=== PATIENT | male | born 1990 | race Two or more races ===

== ENCOUNTER 2024-10-30 23:25 | Inpatient (IN) | payer MEDICAID, OTHER ==
[~2024-10-30] VITALS: Ht 170.2 cm; Wt 60.1 kg
[2024-10-30] MEDS: IPRATROPIUM BROM 0.5 MG/2.5ML INH SOL NEB ONE (23:56)
[2024-10-30] MEDS: ALBUTEROL SULF 2.5 MG/0.5ML(0.5%) NEB SOLN NEB ONE (23:56)
[2024-10-31] VITALS (8 sets, daily range): BP systolic 116–119; BP diastolic 61–71; PULSE 79–103; RESP 16–18; TEMP 97.8–98.2; O2SAT 92–98
--- NOTE | 2024-10-31 00:02 | DVH ---
CHEST RADIOGRAPH Indication: sob Technique: Single frontal view of the chest was obtained Comparison: None Findings/ IMPRESSION: Bilateral diffuse patchy opacities concerning for multifocal pneumonia with other etiologies not excl uded.
--- NOTE | 2024-10-31 00:26 | ED.PDOC ---
SOB-HPI HPI Comments 34-year-old male complaining of shortness a breath. Patient states he has been having shortness of breath since September. He was diagnosed with pneumonia in January and then again in September. He was hospitalized in [place]. States he was state for three weeks and was discharged. Since then he was felt no significant improvement. He was only sent home with an inhaler. States that he was told he may need a biopsy he was lungs but has not had it done yet. Nothing makes him better, walking makes his shortness a breath worse. States he has been having some significant coughing. Chief Complaint: Shortness of Breath Time Seen by MD: 23:31 Reviewed notes: Nurses Notes Information Source: Patient Mode of Arrival: Ambulatory Severity: Moderate Past Medical History PAST MEDICAL HISTORY: Denies Surgical History: Denies all surgeries Constitutional: denies: chills, diaphoresis, fatigue, fever, malaise, sweats, weakness, others EENTM: denies: blurred vision, double vision, ear bleeding, ear discharge, ear drainage, ear pain, ear ringing, eye pain, eye redness, hearing loss, mouth pain, mouth swelling, nasal discharge, nose bleeding, nose congestion, nose pain, photophobia, tearing, throat pain, throat swelling, voice changes, others Respiratory: reports: cough, SOB at rest, SOB with excertion; denies: hemoptysis, orthopnea, shortness of breath, stridor, wheezing, others Cardiovascular: denies: chest pain, dizzy spells, diaphoresis, Dyspnea on exertion, edema, irregular heart beat, left arm pain, lightheadedness, palpitations, PND, syncope, others Gastrointestinal: denies: abdomen distended, abdominal pain, blood streaked bowels, constipated, diarrhea, dysphagia, difficulty swallowing, hematemesis, melena, nausea, poor appetite, poor fluid intake, rectal bleeding, rectal pain, vomiting, others Genitourinary: denies: burning, dysuria, flank pain, frequency, hematuria, incontinence, penile discharge, penile sore, pain, testicle pain, testicle swelling, urgency, others Neurological: denies: dizziness, fainting, headache, left sided numbness, left sided weakness, numbness, paresthesia, pre-existing deficit, right sided numbness, right sided weakness, seizure, speech problems, tingling, tremors, weakness, others Musculoskeletal: denies: back pain, gout, joint pain, joint swelling, muscle pain, muscle stiffness, neck pain, others Integumetry: denies: bruises, change in color, change in hair/nails, dryness, laceration, lesions, lumps, rash, wounds, others Allergic/Immunocompromised: denies: Difficulty Healing, Frequent Infections, Hives, Itching, others Physical Exam General Appearance: Mild Distress, Normal HEENT: Normal ENT Inspection, Pharynx Normal, TMs Normal Neck: Full Range of Motion, Non-Tender, Normal, Normal Inspection Respiratory: Chest Non-Tender, Lungs Clear, No Accessory Muscle Use, Normal Breath Sounds Cardiovascular: No Edema, No JVD, No Murmur, No Gallop, Normal Peripheral Pulses, Regular Rate/Rhythm Breast Exam: Deferred Gastrointestinal: No Organomegaly, Non Tender, No Pulsatile Mass, Normal Bowel Sounds, Soft Genitalia: Deferred Pelvic: Deferred Rectal: Deferred Extremities: No calf tenderness, Normal capillary refill, Normal inspection, Normal range of motion, Non-tender, No pedal edema Musculoskeletal : Apperance: Normal Neurologic: Alert, resident hall director II-XII nml as Tested, No Motor Deficits, Normal Affect, Normal Mood, No Sensory Deficits Cerebellar Function: Normal Reflexes: Normal Skin: Dry, Normal Color, Warm Lymphatic: No Adenopathy Was a procedure done? Was a procedure done?: No Differential Dx Differential Diagnosis: Asthma, Bronchitis, Panic Attack, Pneumonia, Allergic Rhinitis X-Ray, Labs, Meds, VS Vital Signs Date Time Temp Pulse Resp B/P (MAP) Pulse Ox O2 Delivery O2 Flow Rate FiO2 10/30/24 23:57 18 94 Room Air* 0 21 10/30/24 23:35 98.8 103 18 136/93 (107) 95 Current Medications Medications (Trade) Dose Ordered Sig/Fred Route Start Time Stop Time Status Last Admin Albuterol (Ventolin Medneb) 2.5 mg ONCE ONCE NEB 10/30/24 23:45 10/30/24 23:46 DC 10/30/24 23:56 Ipratropium [place] (Atrovent Medneb) 0.5 mg ONCE ONCE NEB 10/30/24 23:45 10/30/24 23:46 DC 10/30/24 23:56 X-Ray, Labs, Meds, VS Comment Patient will be admitted for multifocal pneumonia Recommend pulmonology consult Patient will be started on Rocephin 1 g and azithromycin 500 mg Time of 1ST Reevaluation: 00:25 Reevaluation 1ST: Unchanged Patient Education/Counseling: Diagnosis, Treatment Family Education/Counseling: Diagnosis, Treatment Departure 1 Departure Time of Disposition: 00:24 Impression: Primary Impression: Multifocal pneumonia Disposition: ADMITTED INPATIENT Condition: Stable Discharged With: Self Critical Care Note Critical Care Time?: No Stability Stability form required: No Heart Score Heart Score: Heart Score Response (Comments) Value History N/A 0 EKG N/A 0 Age N/A 0 Risk Factors N/A 0 Troponin N/A 0 Total 0 NATHAN MADSEN Oct 31, 2024 00:26
[2024-10-31] MEDS: AZITHROMYCIN 500MG/ 250ML 250 ML IV ONE (00:59)
[2024-10-31] MEDS: cefTRIAXone 1GM/50ML D5W 50 ML IV ONE (00:59)
[2024-10-31 01:00] LABS: Basophils # (auto) 0.1 10 ^3/uL (0-0.2); Eosinophils # (auto) 0.1 10 ^3/uL (0-0.8); Eosinophils % (auto) 1.3 % (0.0-7.0); Hematocrit 45.2 % (41.0-53.0); Hemoglobin 14.8 g/dL (13.5-17.5); Lymphocytes # (auto) 1.5 10 ^3/uL (0.4-5.4); Lymphocytes % (auto) 13.4 % (10.0-50.0); Mean Corpuscular Hemoglobin 29.5 pg (28.0-32.0); Mean Corpuscular Hgb Conc. 32.8 g/dL (32.0-36.0); Mean Corpuscular Volume 89.9 fL (80.0-100.0); Monocytes # (auto) 0.6 10 ^3/uL (0-1.3); Neutrophils % (auto) 79.3 % (37.0-80.0); Platelet Count (auto) 394 10^3/uL (140-450); Red Blood Cells 5.02 10^6/uL (4.5-5.90); Red Cell Distribution Width 15.2 % (11.8-14.3); White Blood Cell 11.4 10^3/uL (4.4-10.8)
[2024-10-31 01:17] LABS: Alanine Aminotransferase 15 U/L (7-40); Albumin 4.7 g/dL (3.2-4.8); Alkaline Phosphatase 105 U/L (46-116); Anion Gap 9 (5-15); Aspartate Aminotransferase 28 U/L (13-40); BUN/Creatinine Ratio 12.6 (10.0-20.0); Blood Urea Nitrogen 11 mg/dL (9-23); Carbon Dioxide 25 mmol/L (20-31); Chloride 104 mmol/L (98-107); Potassium 3.8 mmol/L (3.5-5.1); Sodium 138 mmol/L (136-145)
[2024-10-31 01:18] LABS: Bilirubin, Total 0.4 mg/dL (0.2-1.0)
[2024-10-31 01:30] LABS: Calcium 10.6 mg/dL (8.7-10.4); Glucose 110 mg/dL (74-106); Total Protein 8.4 g/dL (5.7-8.2)
[2024-10-31 06:26] LABS: Urine Bacteria None Seen /hpf (None Seen)
[2024-10-31 06:40] LABS: Urine Blood Negative /uL (Negative); Urine Clarity Clear (Clear); Urine Color Light-Yellow (Yellow); Urine Mucus FEW (None Seen); Urine Protein, UAD Negative (Negative); Urine Specific Gravity 1.017 (1.001-1.035); Urine Squamous Epithelial Cell None Seen /hpf (<5); Urine Urobilinogen Normal (Negative); Urine WBC <1 /hpf (0 - 3); Urine pH 5.5 (5.0-9.0)
[2024-10-31] MEDS ORDERED: HYDROcodone-ACET 5/325MG TAB PO PRN (08:45)
[2024-10-31] MEDS ORDERED: IPRATROPIUM BROM 0.5 MG/2.5ML INH SOL NEB PRN (08:45)
[2024-10-31] MEDS ORDERED: DOCUSATE SOD 100 MG CAP PO PRN (08:45)
[2024-10-31] MEDS ORDERED: ALBUTEROL SULF 2.5 MG/0.5ML(0.5%) NEB SOLN NEB PRN (08:45)
[2024-10-31] MEDS: SODIUM CHLORIDE 0.9% 1,000 ML IV SCH (08:45)
[2024-10-31] MEDS ORDERED: ONDANSETRON HCL 4 MG/2 ML VIAL IV PRN (08:45)
--- NOTE | 2024-10-31 09:20 | DVHHP2 ---
History of Present Illness Reason for Visit: Multifocal pneumonia History of Present Illness The patient is a 34 year male who denies past medical history presented to [facility] ED with complaint of shortness of breaths. Patient reports he has been experiencing shortness of breath since January, diagnosed with pneumonia in January and September, has been hospitalized in [place] and discharged 3 weeks ago. He reports similar symptoms today with productive cough, SOB at rest, on exertion, getting worse that prompted this visit. Patient was seen and evaluated in the ED, laboratory data shows WBC 11.4 platelets 394, sodium 138, potassium 3.8, BUN 11, creatinine 0.87, GFR 117, glucose 110, calcium 10.6, protein 8.4, chest x-ray revealing bilateral diffuse patchy opacities concerning for multifocal pneumonia with etiologies not excluded. Patient was started on IV antibiotic regimen azithromycin, please see medication orders section in the computer. On my assessment, patient denied chest pain, no headache, no dizziness, no diaphoresis, no nausea, no vomiting, no fever, no chills. Patient was admitted for further evaluation and medical management. Past Medical History Denies past medical history Past Surgical History Denies all surgeries Family History Reviewed, noncontributory to the management of this case. Past Social History The patient lives at home, denies smoking, alcohol or illicit drugs abuse. Review of Systems Constitutional: No: Fever, Chills, Sweats, Weakness, Malaise, Other Eyes: No: Pain, Vision change, Conjunctivae inflammation, Eyelid inflammation, Other, Redness ENT: No: Ear pain, Ear discharge, Nose pain, Nose discharge, Nose congestion, Mouth pain, Mouth swelling, Throat pain, Throat swelling, Other Respiratory: Cough, SOB with excertion, Other (SOB at rest); No: Dry, Shortness of breath, Wheezing, Hemoptysis, Pleuritic Pain, Sputum, Wheezing Cardiovascular: No: Chest Pain, Palpitations, Orthopnea, Paroxysmal Noc. Dyspnea, Edema, Lt Headedness, Other Gastrointestinal: No: Nausea, Vomiting, Abdominal Pain, Diarrhea, Constipation, Melena, Hematochezia, Other Genitourinary: No Dysuria, No Frequency, No Incontinence, No Hematuria, No R etention, No Other Musculoskeletal: No: other, neck pain, shoulder pain, arm pain, back pain, hand pain, leg pain, foot pain Skin: No: Rash, Lesions, Jaundice, Bruising, Other Neurological: No: Weakness, Numbness, Incoordination, Change in speech, Confusion, Seizures, Other Allergies: Coded Allergies: NO KNOWN ALLERGIES (Unverified , 10/30/24) Medications Current Medications Medications Dose Ordered Sig/Fred Route Start Time Stop Time Status Last Admin Dose Admin Albuterol 2.5 mg Q4HPRN PRN NEB 10/31/24 08:45 Ipratropium [place] 0.5 mg Q4HPRN PRN NEB 10/31/24 08:45 Azithromycin 250 ml @ 125 mls/hr DAILY IV 10/31/24 10:00 Sodium Chloride 1,000 ml @ 60 mls/hr [id number] IV 10/31/24 08:45 Acetaminophen/ Hydrocodone Bitart 1 tab Q4HP PRN PO 10/31/24 08:45 Ondansetron HCl 4 mg Q4HP PRN IV 10/31/24 08:45 Docusate Sodium 100 mg BIDPRN PRN PO 10/31/24 08:45 Acetaminophen 650 mg Q6HP PRN PO 10/31/24 08:45 Exam Vital Signs Vital Signs Date Time Temp Pulse Resp B/P (MAP) Pulse Ox O2 Delivery O2 Flow Rate FiO2 10/31/24 07:39 92 20 96 Room Air 10/31/24 07:39 98.2 119/71 (87) 98.2 10/31/24 01:07 0 21 General Appearance: Alert, Oriented X3, Cooperative, No acute distress HEENT: Atraumatic, PERRLA, EOMI, Mucous membr. moist/pink Respiratory: Normal air movement, Other (Diminished breath sounds) Cardiovascular: Regular rate, Normal S1, Normal S2, No murmurs Abdominal: Normal bowel sounds, Soft, No tenderness, No hepatospenomegaly, No masses Extremities: No clubbing, No cyanosis, No edema, Normal pulses, No tenderness/swelling Skin: No rashes, No breakdown, No significant lesion Neuro: Normal gait, Normal speech, Strength at 5/5 X4 ext, Normal tone, Sensation intact, Cranial nerves 3-12 NL, Reflexes 2+ Psych/Mental Status: Mental status NL, Mood NL Labs/Xrays Labs Test 10/31/24 05:40 10/31/24 00:48 Range/Units Urine Color Light-yellow Yellow Urine Clarity Clear Clear Urine pH 5.5 5.0-9.0 Urine Specific [place] 1.017 1.001-1.035 Urine Protein Negative Negative Urine Ketones Negative Negative Urine Blood Negative Negative /uL Urine Nitrite Negative Negative Urine Bilirubin Negative Negative Urine Urobilinogen Normal Negative mg/dL Urine Leukocyte Esterase Negative Negative /uL Urine RBC 1 0 - 3 /hpf Urine WBC <1 0 - 3 /hpf Urine Squamous Epithelial Cells None seen <5 /hpf Urine Bacteria None seen None Seen /hpf Urine Mucus Few None Seen Urine Glucose Normal Normal mg/dL White Blood Count 11.4 H 4.4-10.8 10^3/uL Red Blood Count 5.02 4.5-5.90 10^6/uL Hemoglobin 14.8 13.5-17.5 g/dL Hematocrit 45.2 41.0-53.0 % Mean Corpuscular Volume 89.9 80.0-100.0 fL Mean Corpuscular Hemoglobin 29.5 28.0-32.0 pg Mean Corpuscular Hemoglobin Concent 32.8 32.0-36.0 g/dL Red Cell Distribution Width 15.2 H 11.8-14.3 % Platelet Count 394 140-450 10^3/uL Mean Platelet Volume 6.8 L 6.9-10.8 fL Neutrophils (%) (Auto) 79.3 37.0-80.0 % Lymphocytes (%) (Auto) 13.4 10.0-50.0 % Monocytes (%) (Auto) 5.0 0.0-12.0 % Eosinophils (%) (Auto) 1.3 0.0-7.0 % Basophils (%) (Auto) 1.0 0.0-2.0 % Neutrophils # (Auto) 9.0 H 1.6-8.6 10 ^3/uL Lymphocytes # (Auto) 1.5 0.4-5.4 10 ^3/uL Monocytes # (Auto) 0.6 0-1.3 10 ^3/uL Eosinophils # (Auto) 0.1 0-0.8 10 ^3/uL Basophils # (Auto) 0.1 0-0.2 10 ^3/uL Nucleated Red Blood Cells 0.0 % Sodium Level 138 136-145 mmol/L Potassium Level 3.8 3.5-5.1 mmol/L Chloride Level 104 98-107 mmol/L Carbon Dioxide Level 25 20-31 mmol/L Anion Gap 9 5-15 Blood Urea Nitrogen 11 9-23 mg/dL Creatinine 0.87 0.700-1.30 mg/dL Glomerular Filtration Rate Calc 117 >90 mL/min BUN/Creatinine Ratio 12.6 10.0-20.0 Serum Glucose 110 H 74-106 mg/dL Lactic Acid Level 1.9 0.4-2.0 mmol/L Calcium Level 10.6 H 8.7-10.4 mg/dL Total Bilirubin 0.4 0.2-1.0 mg/dL Aspartate Amino Transferase (AST) 28 13-40 U/L Alanine Aminotransferase (ALT) 15 7-40 U/L Alkaline Phosphatase 105 46-116 U/L Total Protein 8.4 H 5.7-8.2 g/dL Albumin 4.7 3.2-4.8 g/dL PATIENT: ALEK VARGHESECCT: [id number] UNIT: [id number] : 1990 LOC: ER ROOM / BED: / AGE / SEX: 34 / M ADM STATUS: REG ER SERVICE [id number] ORDERING PHYSICIAN: NATHAN MADSEN PROCEDURE(s): CXR1 - CHEST XRAY 1 VIEW REASON: sob ORDER NUMBER(s): [id number], ACCESSION NUMBER(s): [id number] CHEST RADIOGRAPH Indication: sob Technique: Single frontal view of the chest was obtained Comparison: None Findings/ IMPRESSION: Bilateral diffuse patchy opacities concerning for multifocal pneumonia with other etiologies not excluded. Assessment/Plan Assessment/Plan Multifocal pneumonia Leukocytosis, unspecified Acute respiratory distress Plan 1. Admit to telemetry unit 2. Breathing treatment 3. Pain control management 4. IV antibiotic management 5. Management of fluids and electrolytes 6. Consultation for hospitalist 7. Diagnostic test chest x-ray 8. DVT prophylaxis on SCDs 9. Repeat labs CBC, CMP in a.m. 10. Continue with current medical management 11. Treatment plan discussed with patient and RN. Patient verbalized understa nding. Plan discussed with: Patient, Other (RN) My Orders Orders - SPIKE HAYES DNP Procedure Category Date Status Time Albuterol Medneb PHA 10/31/24 In Process (Ventolin Medneb) 08:45 Ipratropium Medneb PHA 10/31/24 In Process (Atrovent Medneb) 08:45 Azithromycin 500mg/ PHA 10/31/24 In Process 250ml (Zithromax 50 10:00 Allergies PATSY 10/31/24 In Process 08:32 Code Status CODE 10/31/24 Transmitted 08:32 Sodium Chloride 0.9% PHA 10/31/24 In Process 08:45 Oxygen Per Hour RT 10/31/24 Transmitted 08:32 Hydrocodone-Acet PHA 10/31/24 In Process 5/325mg Tab ([place] 08:45 Ondansetron Hcl PHA 10/31/24 In Process (Zofran) 08:45 Docusate Sodium PHA 10/31/24 In Process Capsule ([place] 08:45 Complete Blood Count LAB 11/01/24 Verified 04:00 Comprehensive LAB 11/01/24 Verified Metabolic Panel 04:00 Cardiac DIET 10/31/24 Transmitted Diet-2gna,Lofat,Lochol Breakfast Condition: Serious PATSY 10/31/24 In Process 08:32 Acetaminophen Tablet PHA 10/31/24 In Process (Tylenol Tablet) 08:45 Bedrest With Bathroom PATSY 10/31/24 In Process Privileg 08:32 Sequential PATSY 10/31/24 In Process Compression Device Problem List: (1) Multifocal pneumonia (2) Leukocytosis, unspecified (3) Acute respiratory distress Date of Service: Oct 31, 2024 Billing Provider: SPIKE HAYES DNP Common Visit Codes: [id number] INP/OBS CARE (HIGH) SPIKE HAYES DNP Oct 31, 2024 09:20
[2024-10-31] MEDS ORDERED: MORPHINE SULFATE INJ 2 MG/ml SYRG IV PRN (09:30)
[2024-10-31] MEDS ORDERED: NITROGLYCERIN 0.4 MG SL TAB SL PRN (09:30)
[2024-10-31] MEDS: AZITHROMYCIN 500MG/ 250ML 250 ML IV SCH (17:05)
[2024-11-01] VITALS (11 sets, daily range): BP systolic 97–113; BP diastolic 48–66; PULSE 57–102; RESP 18–20; TEMP 97.6–98.2; O2SAT 92–96
[2024-11-01] MEDS: MELATONIN 5 MG TAB PO ONE (02:36)
[2024-11-01 05:40] LABS: Basophils # (auto) 0.1 10 ^3/uL (0-0.2); Basophils % (auto) 0.9 % (0.0-2.0); Eosinophils # (auto) 0.2 10 ^3/uL (0-0.8); Eosinophils % (auto) 4.1 % (0.0-7.0); Hematocrit 40.2 % (41.0-53.0); Hemoglobin 13.3 g/dL (13.5-17.5); Lymphocytes # (auto) 1.4 10 ^3/uL (0.4-5.4); Lymphocytes % (auto) 24.1 % (10.0-50.0); Mean Corpuscular Hemoglobin 29.6 pg (28.0-32.0); Mean Corpuscular Hgb Conc. 33.1 g/dL (32.0-36.0); Mean Corpuscular Volume 89.2 fL (80.0-100.0); Monocytes # (auto) 0.6 10 ^3/uL (0-1.3); Monocytes % (auto) 10.7 % (0.0-12.0); Neutrophils # (auto) 3.4 10 ^3/uL (1.6-8.6); Neutrophils % (auto) 60.2 % (37.0-80.0); Nucleated Red Blood Cells % 0.1 %; Platelet Count (auto) 357 10^3/uL (140-450); Red Blood Cells 4.51 10^6/uL (4.5-5.90); Red Cell Distribution Width 14.9 % (11.8-14.3); White Blood Cell 5.7 10^3/uL (4.4-10.8)
[2024-11-01 05:43] LABS: Alanine Aminotransferase 12 U/L (7-40); Albumin 3.8 g/dL (3.2-4.8); Alkaline Phosphatase 86 U/L (46-116); Anion Gap 8 (5-15); Aspartate Aminotransferase 21 U/L (13-40); Blood Urea Nitrogen 16 mg/dL (9-23); Calcium 9.8 mg/dL (8.7-10.4); Carbon Dioxide 25 mmol/L (20-31); Chloride 107 mmol/L (98-107); Glucose 85 mg/dL (74-106); Potassium 3.9 mmol/L (3.5-5.1); Sodium 140 mmol/L (136-145)
[2024-11-01 05:44] LABS: Bilirubin, Total 0.4 mg/dL (0.2-1.0); Total Protein 6.8 g/dL (5.7-8.2)
[2024-11-01] MEDS: cefTRIAXone 1GM/50ML D5W 50 ML IV ONE (13:09)
--- NOTE | 2024-11-01 13:17 | DVH ---
EXAM: CT HI-RESOLUTION CHEST CT History: rule out ILD Comparison Study: None available TECHNIQUE: Multidetector CT of the chest was performed. Imaging was performed without IV contrast. Ax ial, coronal, and sagittal multiplanar reformats were obtained from the axial data set by the technol yousuf. Radiation Dose : CTDI vol 9.15 mGy, DLP 518.4 mGy*cm. Findings: Lungs: Numerous nodular condolidations throughout both lungs in a perilymphatic distribution with mor e confluent opacification of bilateral upper lobes. Mild intralobular septal thickening. No evidence of fibrosis or honeycombing. No significant difference between inhalation and exhalation. Pleura: Unremarkable Heart/Great vessels: The visualized heart is unremarkable. No cardiomegaly or pericardial effusion. Mediastinum: Prominent mediastinal nodes. Soft tissues/Bones: Unremarkable The partially visualized upper abdomen is within normal limits. Impression: 1. Numerous nodular condolidations throughout both lungs in a perilymphatic distribution with more co nfluent opacification of bilateral upper lobes. Findings are favored to reflect an infectious/inflamm atory etiology. Consider tissue sampling for further evaluation as indicated. 2. Prominent mediastinal nodes, nonspecific but favored reactive. 3. Mild intralobular septal thickening, nonspecific. 4. No evidence of fibrosis or honeycombing.
[2024-11-01 13:22] LABS: Rapid Influenza A Negative (Negative); Rapid Influenza B Negative (Negative)
[2024-11-01 13:23] LABS: COVID19 ANTIGEN SOFIA FIA NEGATIVE (NEGATIVE)
--- NOTE | 2024-11-01 14:45 | DVHSR ---
APPROVED REPORT EXAM: Two-dimensional and M-mode echocardiogram with Doppler and color Doppler. Blood Pressure: 105/48 mmHg INDICATION cardiac function and wall motion RISK FACTORS Height: 5'7, Weight: 130 DIMENSIONS LVDd4.6 (3.8-5.7cm)LA (2D)2.1 (1.9-4.0cm)Aortic Root3.4 (2.0-3.7cm) LVDs3.2 (2.5-4.0cm)LA (MM) (1.9-4.0cm)Aortic Cusp Exc1.9 (1.5-2.0cm) EF (%) 55.0 (55-70%)Rt. Atrium2.5 (1.9-4.0cm)Asc. Aorta2.7 cm IVSd0.6 (0.7-1.1cm)RV (D) (1.8-2.4cm) PWd0.8 (0.7-1.1cm) Mitral Valve MitralMitral Stenosis E wave0.82m/sMV Mean GR.mmHg A wave0.55m/sMV Peak GR.mmHg E/A ratio1.52D MVAcm2 DECEL [id number] 1/2 Timems Aortic Valve Aortic ValveAortic Stenosis V10.56m/Marissa Mean GR.2mmHg V20.84m/Marissa Peak GR.3mmHg LVOT Diameter2.4 (1.8-2.4cm)Doppler AVA3.01cm2 Pulmonic Valve V20.69m/s Conclusion NORMAL LV EJECTION FRACTION OF 55% NORMAL VALVES MODERATELY DILATED RV, CORRELATECLINICALLY NORMAL RV FUNCTION NO EFFUSION
[2024-11-01 16:13] LABS: Erythrocyte Sedimentation Rate 16 mm/hr (0-20)
--- NOTE | 2024-11-01 17:40 | DVHPNRES ---
Progress Note Date Seen: Nov 01, 2024 Resident Creating Document: DOTTIE BRAND RESIDENT Medical Necessity Reason Pt with a Central, PICC or Fol: No Subjective Review of Systems The patient is a 34 year male with past medical history of polysubstance abue(marijuana and crystal meth) currently on rehabilitation who presented to [facility] ED with complaint of shortness of breath and epigastric pain while coughing. 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 Patient reports he has been experiencing shortness of breath and dry cough since January, diagnosed with pneumonia in January and September , cough is described as dry and is associated with mild epigastric/chest discomfort, other than that patient reports that he has been hospitalized in [place] and discharged 3 weeks ago they told the patient he has a fungal infection in the lungs. Patient was examined at bedside , he reports improvement in his epigastric/chest pain, but the cough remains the same otherwise the patient is stable. Patient was started on IV antibiotic regimen azithromycin and ceftriaxone. CT chest showed numerous nodular consolidations throughout both lungs in a perilymphatic distribution with more confluent opacification of bilateral upper lobes. Findings are favored to reflect an infectious/inflammatory etiology. Prominent mediastinal nodes, nonspecific but favored reactive.Mild intralobular septal thickening, nonspecific. No evidence of fibrosis or honeycombing. coccidioides Immitis Ab result is pending. Pulmonology consult is pending. ROS: Constitutional: No: Fever, Chills, Sweats, Weakness, Malaise, Other Eyes: No: Pain, Vision change, Conjunctivae inflammation, Eyelid inflammation, Other, Redness ENT: No: Ear pain, Ear discharge, Nose pain, Nose discharge, Nose congestion, Mouth pain, Mouth swelling, Throat pain, Throat swelling, Other Respiratory: Cough present, Shortness of breath, improving No Wheezing, Hemoptysis, Pleuritic Pain, Sputum, Wheezing, Other Cardiovascular: No: Chest Pain, Palpitations, Orthopnea, Paroxysmal Noc. Dyspnea, Edema, Lt Headedness, Other Gastrointestinal: No: Nausea, Vomiting, Abdominal Pain, Diarrhea, Constipation, Melena, Hematochezia, Other Musculoskeletal: No: other, neck pain, shoulder pain, arm pain, back pain, hand pain, leg pain, foot pain Neurological:; No: Weakness, Numbness, Incoordination, Change in speech, Confusion, Seizures Patient reports: Feels better Changes from previous H/P or p: Changes Objective vital signs Vital Sign Date Time Temp Pulse Resp B/P (MAP) Pulse Ox O2 Delivery O2 Flow Rate FiO2 11/01/24 17:07 66 113/66 (82) 11/01/24 16:50 98.1 18 94 98.1 11/01/24 08:00 Nasal Cannula* 2 28 Total Intake and Output 10/31/24 10/31/24 11/01/24 15:00 23:00 07:00 Intake Total 1430 ml Balance 1430 ml medications Current Medications Medications Dose Ordered Sig/Fred Route Start Time Stop Time Status Last Admin Dose Admin Albuterol 2.5 mg Q4HPRN PRN NEB 10/31/24 08:45 Ipratropium [place] 0.5 mg Q4HPRN PRN NEB 10/31/24 08:45 Sodium Chloride 1,000 ml @ 60 mls/hr [id number] IV 10/31/24 08:45 11/01/24 02:37 60 MLS/HR Acetaminophen/ Hydrocodone Bitart 1 tab Q4HP PRN PO 10/31/24 08:45 Ondansetron HCl 4 mg Q4HP PRN IV 10/31/24 08:45 Docusate Sodium 100 mg BIDPRN PRN PO 10/31/24 08:45 Acetaminophen 650 mg Q6HP PRN PO 10/31/24 08:45 Nitroglycerin 0.4 mg Q5MINP PRN SL 10/31/24 09:30 Morphine Sulfate 2 mg Q30M PRN IV 10/31/24 09:30 Azithromycin 500 mg DAILY PO 11/02/24 10:00 Ceftriaxone Sodium 50 ml @ 100 mls/hr DAILY@09 IV 11/02/24 09:00 Examination Examination General Appearance: Alert, Oriented X3, Cooperative, No acute distress Respiratory: Clear to auscultation, Normal air movement Cardiovascular: Regular rate, Normal S1, Normal S2 Abdominal: Normal bowel sounds Extremities: No cyanosis, No edema, Normal pulses, No tenderness/swelling Skin: No rashes, No breakdown Neuro: Normal gait, Normal speech, Strength at 5/5 X4 ext, Normal tone, Sensation intact Psych/Mental Status: Mental status NL, Mood NL laboratory and microbiology Laboratory Tests 11/01/24 04:49 Test 11/01/24 04:49 Range/Units Serum Glucose 85 74-106 mg/dL Problem List/Assessment/Plan Problem List/Assessment/Plan #Acute on chronic respiratory failure likely multifactorial due to multifocal Gram +/Gram- pneumonia, rule out fungal pneumonia #Numerous nodular consolidations throughout both lungs in a perilymphatic distribution #Reactive lung nodules #Mild intralobular septal thickening - Patient tranferred to [facility] - coccidiomycosis imitis Ab , pending - Pulmonology consult - continue antibiotics IV - Nasal cannula 2L - Blood culture - Sputum culture #Asymptomatic bradycardia - monitor - Echo is pending #History of polysubstance abuse - Currently on rehabilitation Case discussed with Goals of care discussed with the patient for 24 minutes. code status: full code Plan discussed with: Patient My Orders My Orders Orders - DOTTIE BRAND Procedure Category Date Status Time Drug Screen LAB 11/01/24 Logged 09:21 Ceftriaxone 1gm/50ml PHA 11/02/24 In Process D5w (Rocephin) 09:00 Azithromycin Tablet PHA 11/02/24 In Process (Zithromax Tablet) 10:00 Hi-Resolution Chest Ct CT 11/01/24 Resulted 11:20 Coccidioides Immitis LAB 11/01/24 In Process Antibody 13:21 Respiratory Culture DAVID 11/01/24 Uncollected W/ Gs 13:21 Blood Culture DAVID 11/01/24 In Process 15:23 *Consult CONS 11/01/24 Transmitted / 14:20 Date of Service: Nov 01, 2024 Billing Provider: LUCIO MOON MD Common Visit Codes: [id number] INP/OBS CARE(HIGH) DOTTIE BRAND RESIDENT Nov 01, 2024 17:40 LUCIO MOON MD Nov 01, 2024 19:39
[2024-11-01 19:46] LABS: Amphetamine Screen, Urine Neg (NEGATIVE); Barbiturate Scree,Urine Neg (NEGATIVE); Benzodiazephine Screen, Urine Neg (NEGATIVE); Cannabinoid Screen, Urine Neg (NEGATIVE); Cocaine Screen, Urine Neg (NEGATIVE); Opiate Scree,Urine Neg (NEGATIVE); Phencyclidine Screen, Urine Neg (NEGATIVE)
--- NOTE | 2024-11-01 23:19 | DVHINCON2 ---
Date of service: Nov 01, 2024 Referring Physician Dashawn Alan NP Reason for Consultation Pneumonia, cough, SOB. History of Present Illness A 34-year-old man who denies past medical history who presented to ED on 10/31/24 with complaint of shortness of breath. Patient reports he has been experiencing shortness of breath since January, diagnosed with pneumonia in January and September, has been hospitalized in [place] and discharged 3 weeks ago. He reports similar symptoms today with productive cough, SOB at rest and on exertion, getting worse that prompted this visit. ED workup noted WBC 11.4, platelets 394, sodium 138, potassium 3.8, BUN 11, creatinine 0.87, GFR 117, glucose 110, calcium 10.6, protein 8.4. Chest x-ray revealing bilateral diffuse patchy opacities concerning for multifocal pneumonia with etiologies not excluded. Patient was admitted for further care and pulmonary consultation is requested for evaluation and management due to these findings. Review of Systems: 14-point review of systems negative unless otherwise noted above. Past Medical History: Denies. Past Surgical History: Denies. Medications: Reviewed. Allergies: No known drug allergies. Family History: No family history of premature CAD. No family history of lung disorders. Social History: Nonsmoker. No alcohol use. Positive methamphetamine abuse Allergies: Coded Allergies: NO KNOWN ALLERGIES (Unverified , 10/30/24) Home Meds Active Scripts Levofloxacin Hemihydrate (LEVOFLOXACIN) 750 Mg Tab, 750 MG PO DAILY for 5 Days, #5 TAB Prov:KELLI TORREZ RESIDENT 11/03/24 Current Medications Current Medications Medications (Trade) Dose Ordered Sig/Fred Route PRN Reason Start Time Stop Time Status Last Admin Azithromycin (Zithromax Tablet) 500 mg DAILY PO 11/02/24 10:00 Ceftriaxone Sodium 50 ml @ 100 mls/hr DAILY@09 IV 11/02/24 09:00 Vital Signs Vital Signs Date Time Temp Pulse Resp B/P (MAP) Pulse Ox O2 Delivery O2 Flow Rate FiO2 11/01/24 21:00 98.2 102 18 101/63 (76) 92 98.2 11/01/24 08:00 Nasal Cannula* 2 28 Physical Exam Gen.: Patient lying in bed in no apparent distress. On supplemental oxygen. Head: Normocephalic, atraumatic. Eyes: EOMI/PERRLA. Ears: Normal hearing. Normal anatomy. Neck/trachea: Trachea midline, supple. Nose: Normal external anatomy. Mouth: Moist mucous membranes. Chest: Decreased air entry bilaterally. No wheezing or rhonchi. Cardiovascular: Positive S1, positive S2. Regular rate and rhythm. Abdomen: Positive bowel sounds in all 4 quadrants. Soft, non-tender, non- distended. : Deferred. Rectal: Deferred. Skin: Warm, dry. Intact. Extremities: 2+ radial pulses bilaterally. No lower extremity edema. Neuro: Awake, alert, oriented x3. No gross motor or sensory deficits. Cranial nerves II through XII intact. Gait not assessed. Labs/Diagnostic Data Labs Test 11/01/24 19:19 11/01/24 15:10 11/01/24 09:21 11/01/24 04:49 Range/Units Urine Opiates Screen Neg NEGATIVE Urine Fentanyl Screen Neg NEGATIVE Urine Barbiturates Screen Neg NEGATIVE Urine Phencyclidine Screen Neg NEGATIVE Urine Amphetamines Screen Neg NEGATIVE Urine Benzodiazepines Screen Neg NEGATIVE Urine Cocaine Screen Neg NEGATIVE Urine Cannabinoids Screen Neg NEGATIVE Erythrocyte Sedimentation Rate 16 0-20 mm/hr HIV (1&2) Antibody Negative Negative Influenza Type A Antigen Negative Negative Influenza Type B Antigen Negative Negative White Blood Count 5.7 # 4.4-10.8 10^3/uL Red Blood Count 4.51 4.5-5.90 10^6/uL Hemoglobin 13.3 L 13.5-17.5 g/dL Hematocrit 40.2 #L 41.0-53.0 % Mean Corpuscular Volume 89.2 80.0-100.0 fL Mean Corpuscular Hemoglobin 29.6 28.0-32.0 pg Mean Corpuscular Hemoglobin Concent 33.1 32.0-36.0 g/dL Red Cell Distribution Width 14.9 H 11.8-14.3 % Platelet Count 357 140-450 10^3/uL Mean Platelet Volume 7.0 6.9-10.8 fL Neutrophils (%) (Auto) 60.2 37.0-80.0 % Lymphocytes (%) (Auto) 24.1 10.0-50.0 % Monocytes (%) (Auto) 10.7 0.0-12.0 % Eosinophils (%) (Auto) 4.1 0.0-7.0 % Basophils (%) (Auto) 0.9 0.0-2.0 % Neutrophils # (Auto) 3.4 1.6-8.6 10 ^3/uL Lymphocytes # (Auto) 1.4 0.4-5.4 10 ^3/uL Monocytes # (Auto) 0.6 0-1.3 10 ^3/uL Eosinophils # (Auto) 0.2 0-0.8 10 ^3/uL Basophils # (Auto) 0.1 0-0.2 10 ^3/uL Nucleated Red Blood Cells 0.1 % Sodium Level 140 136-145 mmol/L Potassium Level 3.9 3.5-5.1 mmol/L Chloride Level 107 98-107 mmol/L Carbon Dioxide Level 25 20-31 mmol/L Anion Gap 8 5-15 Blood Urea Nitrogen 16 9-23 mg/dL Creatinine 0.84 0.700-1.30 mg/dL Glomerular Filtration Rate Calc 118 >90 mL/min BUN/Creatinine Ratio 19.0 10.0-20.0 Serum Glucose 85 74-106 mg/dL Calcium Level 9.8 8.7-10.4 mg/dL Total Bilirubin 0.4 0.2-1.0 mg/dL Aspartate Amino Transferase (AST) 21 13-40 U/L Alanine Aminotransferase (ALT) 12 7-40 U/L Alkaline Phosphatase 86 46-116 U/L B-Type Natriuretic Peptide 13.70 0-100 pg/mL Total Protein 6.8 5.7-8.2 g/dL Albumin 3.8 3.2-4.8 g/dL Test 11/01/24 00:00 10/31/24 10:28 10/31/24 05:40 10/31/24 00:48 Range/Units SARS-CoV-2 Antigen (Rapid) Negative NEGATIVE Troponin I High Sensitivity < 3 L </=54 ng/L Urine Color Light-yellow Yellow Urine Clarity Clear Clear Urine pH 5.5 5.0-9.0 Urine Specific [place] 1.017 1.001-1.035 Urine Protein Negative Negative Urine Ketones Negative Negative Urine Blood Negative Negative /uL Urine Nitrite Negative Negative Urine Bilirubin Negative Negative Urine Urobilinogen Normal Negative mg/dL Urine Leukocyte Esterase Negative Negative /uL Urine RBC 1 0 - 3 /hpf Urine WBC <1 0 - 3 /hpf Urine Squamous Epithelial Cells None seen <5 /hpf Urine Bacteria None seen None Seen /hpf Urine Mucus Few None Seen Urine Glucose Normal Normal mg/dL Lactic Acid Level 1.9 0.4-2.0 mmol/L Assessment Impression: Acute hypoxic respiratory failure Dependence on supplemental oxygen Multifocal pneumonia Cough Methamphetamine abuse. Plan: Supplemental oxygen Titrate to keep O2 sats above 92%. Chest CT reviewed; Numerous nodular consolidations throughout both lungs in a perilymphatic distribution with more confluent opacification of bilateral upper lobes - likely infectious/inflammatory etiology. Prominent mediastinal nodes, nonspecific but favored reactive. Mild intralobular septal thickening, nonspecific. Continue antibiotics Monitor renal function. Monitor electrolytes. Supplement as necessary. Monitor ins and outs. DVT prophylaxis. Prognosis: Poor given patient's multiple co-morbidities. Rest of plan per hospitalist and other consultants. Thank you, Dashawn Alan NP, for allowing me to participate in this patient's care. Further recommendations will depend on the patient's clinical course. Please do not hesitate to contact me if you have any questions or concerns. This medical document was created using an electronic medical record system with [employer] computerized dictation system. Although these documentations are being carefully reviewed, there may still be some phonetic and typographical changes. The errors are purely typographical, due to imperfection on the software program, and do not reflect any compromise in the patient's medical care Plan discussed with: Patient, Other (LEORA Damon/KEENAN Alan/) ELVIRA SWANSON MD Nov 01, 2024 23:19
[2024-11-02] VITALS (8 sets, daily range): BP systolic 98–110; BP diastolic 51–70; PULSE 78–94; RESP 17–18; TEMP 97.9–98.5; O2SAT 92–95
[2024-11-02 07:28] LABS: Chloride 106 mmol/L (98-107); Potassium 3.8 mmol/L (3.5-5.1); Sodium 138 mmol/L (136-145)
[2024-11-02 07:29] LABS: Anion Gap 7 (5-15); Calcium 9.7 mg/dL (8.7-10.4); Carbon Dioxide 25 mmol/L (20-31)
[2024-11-02 07:34] LABS: BUN/Creatinine Ratio 21.7 (10.0-20.0); Blood Urea Nitrogen 15 mg/dL (9-23); Glucose 88 mg/dL (74-106)
[2024-11-02 08:03] LABS: Basophils # (auto) 0 10 ^3/uL (0-0.2); Basophils % (auto) 0.5 % (0.0-2.0); Eosinophils # (auto) 0.2 10 ^3/uL (0-0.8); Eosinophils % (auto) 2.9 % (0.0-7.0); Hematocrit 42.1 % (41.0-53.0); Hemoglobin 13.8 g/dL (13.5-17.5); Lymphocytes # (auto) 1.3 10 ^3/uL (0.4-5.4); Lymphocytes % (auto) 15.5 % (10.0-50.0); Mean Corpuscular Hemoglobin 29.4 pg (28.0-32.0); Mean Corpuscular Hgb Conc. 32.8 g/dL (32.0-36.0); Mean Corpuscular Volume 89.5 fL (80.0-100.0); Monocytes # (auto) 0.6 10 ^3/uL (0-1.3); Monocytes % (auto) 7.3 % (0.0-12.0); Neutrophils % (auto) 73.8 % (37.0-80.0); Nucleated Red Blood Cells % 0.1 %; Platelet Count (auto) 351 10^3/uL (140-450); Red Blood Cells 4.71 10^6/uL (4.5-5.90); Red Cell Distribution Width 14.7 % (11.8-14.3); White Blood Cell 8.2 10^3/uL (4.4-10.8)
[2024-11-02] MEDS: AZITHROMYCIN 250 MG TAB PO SCH (08:26)
[2024-11-02] MEDS: cefTRIAXone 1GM/50ML D5W 50 ML IV SCH (08:26)
--- NOTE | 2024-11-02 17:48 | DVHPNRES ---
Progress Note Date Seen: Nov 02, 2024 Resident Creating Document: DOTTIE BRAND RESIDENT Medical Necessity Reason Pt with a Central, PICC or Fol: No Subjective Review of Systems The patient is a 34 year male with past medical history of polysubstance abue(marijuana and crystal meth) currently on rehabilitation who presented to [facility] ED with complaint of shortness of breath and epigastric pain while coughing. 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 Patient reports he has been experiencing shortness of breath and dry cough since January, diagnosed with pneumonia in January and September , cough is described as dry and is associated with mild epigastric/chest discomfort, other than that patient reports that he has been hospitalized in [place] and discharged 3 weeks ago they told the patient he has a fungal infection in the lungs. Patient was examined at bedside , he reports improvement in his epigastric/chest pain, but the cough remains the same otherwise the patient is stable. Patient was started on IV antibiotic regimen azithromycin and ceftriaxone. CT chest showed numerous nodular consolidations throughout both lungs in a perilymphatic distribution with more confluent opacification of bilateral upper lobes. Findings are favored to reflect an infectious/inflammatory etiology. Prominent mediastinal nodes, nonspecific but favored reactive.Mild intralobular septal thickening, nonspecific. No evidence of fibrosis or honeycombing. coccidioides Immitis Ab result is pending. Pulmonology consult is pending. Patient reports: Feels better Changes from previous H/P or p: Changes Objective vital signs Vital Sign Date Time Temp Pulse Resp B/P (MAP) Pulse Ox O2 Delivery O2 Flow Rate FiO2 11/02/24 13:00 97.9 92 17 100/63 (75) 92 97.9 11/02/24 08:00 Room Air* 0 21 Total Intake and Output 11/01/24 11/01/24 11/02/24 15:00 23:00 07:00 Intake Total 300 ml 660 ml 1670 ml Output Total 200 ml Balance 300 ml 460 ml 1670 ml medications Current Medications Medications Dose Ordered Sig/Fred Route Start Time Stop Time Status Last Admin Dose Admin Albuterol 2.5 mg Q4HPRN PRN NEB 10/31/24 08:45 Cancel Ipratropium [place] 0.5 mg Q4HPRN PRN NEB 10/31/24 08:45 Cancel Sodium Chloride 1,000 ml @ 60 mls/hr [id number] IV 10/31/24 08:45 11/02/24 08:26 60 MLS/HR Acetaminophen/ Hydrocodone Bitart 1 tab Q4HP PRN PO 10/31/24 08:45 Ondansetron HCl 4 mg Q4HP PRN IV 10/31/24 08:45 Docusate Sodium 100 mg BIDPRN PRN PO 10/31/24 08:45 Acetaminophen 650 mg Q6HP PRN PO 10/31/24 08:45 Nitroglycerin 0.4 mg Q5MINP PRN SL 10/31/24 09:30 Morphine Sulfate 2 mg Q30M PRN IV 10/31/24 09:30 Azithromycin 500 mg DAILY PO 11/02/24 10:00 11/02/24 08:26 500 MG Ceftriaxone Sodium 50 ml @ 100 mls/hr DAILY@09 IV 11/02/24 09:00 11/02/24 08:26 100 MLS/HR Examination: GENERAL:Normal, HEENT:Normal, NECK:Normal, LUNGS:Abnormal, CVS:Normal, ABDOMEN:Normal, MSK:Normal, SKIN:Normal, NEURO:Normal, :Normal laboratory and microbiology Laboratory Tests 11/02/24 06:54 Test 11/02/24 06:54 Range/Units Serum Glucose 88 74-106 mg/dL Microbiology Date/Time Source Procedure Growth Status 11/01/24 15:45 Blood Blood Culture - Preliminary NO GROWTH AFTER 24 HOURS OF INCUBATION. Resulted Problem List/Assessment/Plan Problem List/Assessment/Plan #Acute on chronic respiratory failure likely multifactorial due to multifocal Gram +/Gram- pneumonia, rule out fungal pneumonia #Numerous nodular consolidations throughout both lungs in a perilymphatic distribution, r/o miliary TB #Reactive lung nodules #Mild intralobular septal thickening - Patient tranferred to [facility] - coccidiomycosis imitis Ab , pending - Quantiferon tb - Pulmonology consult - continue antibiotics IV - Nasal cannula 2L - Blood culture - Sputum culture - HIV NEG - PPD #Asymptomatic bradycardia - monitor - Echo ,unremarkable #History of polysubstance abuse - Currently on rehabilitation Case discussed with Goals of care discussed with the patient for 24 minutes. code status: full code Plan discussed with: Patient My Orders My Orders Orders - DOTTIE BRAND RESIDENT Procedure Category Date Status Time Transfer Orders XFER 11/01/24 Transmitted 17:56 Discontinue Tele PATSY 11/01/24 In Process 17:56 Quantiferon-Tb Gold LAB 11/02/24 In Process 13:25 Obtain Mr From Other ORDERS 11/02/24 Transmitted Facility 14:02 Date of Service: Nov 02, 2024 Billing Provider: THALIA ART MD Common Visit Codes: [id number] INP/OBS CARE(HIGH) DOTTIE BRAND RESIDENT Nov 02, 2024 17:48 THALIA ART MD Nov 03, 2024 08:51
--- NOTE | 2024-11-02 22:31 | DVHPN2 ---
Progress Note - Dictate Date Seen: Nov 02, 2024 Medical Necessity Reason Pt with a Central, PICC or Fol: No Subjective Patient seen and examined at bedside. Breathing comfortably on room air. Overnight events reviewed. vital signs Vital Sign Date Time Temp Pulse Resp B/P (MAP) Pulse Ox O2 Delivery O2 Flow Rate FiO2 11/02/24 21:00 98.5 78 18 109/62 (78) 95 98.5 11/02/24 08:00 Room Air* 0 21 Total Intake and Output 11/01/24 11/01/24 11/02/24 15:00 23:00 07:00 Intake Total 300 ml 660 ml 1670 ml Output Total 200 ml Balance 300 ml 460 ml 1670 ml medications Current Medications Medications Dose Ordered Sig/Fred Route Start Time Stop Time Status Last Admin Dose Admin Albuterol 2.5 mg Q4HPRN PRN NEB 10/31/24 08:45 Cancel Ipratropium [place] 0.5 mg Q4HPRN PRN NEB 10/31/24 08:45 Cancel Acetaminophen 650 mg Q6HP PRN PO 10/31/24 08:45 Azithromycin 500 mg DAILY PO 11/02/24 10:00 11/02/24 08:26 500 MG Ceftriaxone Sodium 50 ml @ 100 mls/hr DAILY@09 IV 11/02/24 09:00 11/02/24 08:26 100 MLS/HR objective Gen.: Patient lying in bed in no apparent distress. Breathing on room air. Head: Normocephalic, atraumatic. Eyes: EOMI/PERRLA. Ears: Normal hearing. Normal anatomy. Neck/trachea: Trachea midline, supple. Nose: Normal external anatomy. Mouth: Moist mucous membranes. Chest: Decreased air entry bilaterally. No wheezing or rhonchi. Cardiovascular: Positive S1, positive S2. Regular rate and rhythm. Abdomen: Positive bowel sounds in all 4 quadrants. Soft, non-tender, non- distended. : Deferred. Rectal: Deferred. Skin: Warm, dry. Intact. Extremities: 2+ radial pulses bilaterally. No lower extremity edema. Neuro: Awake, alert, oriented x3. No gross motor or sensory deficits. Cranial nerves II through XII intact. Gait not assessed. laboratory and microbiology Laboratory Tests 11/02/24 06:54 Test 11/02/24 06:54 Range/Units Serum Glucose 88 74-106 mg/dL Assessment/Plan Impression: Acute hypoxic respiratory failure Dependence on supplemental oxygen Multifocal pneumonia Cough Methamphetamine abuse. Events: Breathing on room air No respiratory distress No new complaints. Plan for HRCT chest (1 mm) PFTs to assess lung function 6MWT to assess for desaturation on exertion Obtain labs including RF, LEONEL, anti-CCP Obtain Echo report We are awaiting records from outside hospital. Follow up Quantiferon results. Place PPD. Labs and imaging reviewed. Rest of plan as noted below. Plan: Supplemental oxygen PRN Titrate to keep O2 sats above 92%. Chest CT reviewed; Numerous nodular consolidations throughout both lungs in a perilymphatic distribution with more confluent opacification of bilateral upper lobes - likely infectious/inflammatory etiology. Prominent mediastinal nodes, nonspecific but favored reactive. Mild intralobular septal thickening, nonspecific. Continue antibiotics Monitor renal function. Monitor electrolytes. Supplement as necessary. Monitor ins and outs. DVT prophylaxis. Prognosis: Poor given patient's multiple co-morbidities. Rest of plan per hospitalist and other consultants. Thank you, Dashawn Alan NP, for allowing me to participate in this patient's care. Further recommendations will depend on the patient's clinical course. Please do not hesitate to contact me if you have any questions or concerns. This medical document was created using an electronic medical record system with [employer] dictation system. Although these documentations are being carefully reviewed, there may still be some phonetic and typographical changes. The errors are purely typographical, due to imperfection on the software program, and do not reflect any compromise in the patient's medical care Plan discussed with: Patient, Other (LEORA Moore) ELVIRA SWANSON MD Nov 02, 2024 22:31
[2024-11-03 01:00] VITALS: BP 110/64; PULSE 91; RESP 18; TEMP 98.2; O2SAT 94
[2024-11-03] MEDS: ACETAMINOPHEN 325 MG TAB PO PRN (01:07)
[2024-11-03 05:00] VITALS: BP 96/61; PULSE 76; RESP 18; TEMP 97.4; O2SAT 96
[2024-11-03 08:00] VITALS: PULSE 80; RESP 17; O2SAT 94
[2024-11-03 08:55] VITALS: BP 98/63; PULSE 80; RESP 17; TEMP 97.9; O2SAT 94
[2024-11-03] MEDS ORDERED: LEVO750T40 PO (10:46)
[2024-11-03 12:54] VITALS: BP 106/63; PULSE 90; RESP 17; TEMP 98.5; O2SAT 94
[2024-11-03 16:43] VITALS: BP 114/67; PULSE 105; RESP 17; TEMP 98.1; O2SAT 94
--- NOTE | 2024-11-03 22:23 | DVHDSRES ---
Discharge Summary Date of Admission Resident Creating Document: DOTTIE BRAND RESIDENT Oct 31, 2024 at 09:18 Date of Discharge: Nov 03, 2024 Admitting Diagnosis multifocal pneumonia Labs/Diagnostic Data: Laboratory Results Test 11/02/24 15:59 11/02/24 15:58 11/02/24 06:54 11/01/24 19:19 Anti-Nuclear Antibody Screen Negative (Negative) White Blood Count 8.2 10^3/uL (4.4-10.8) Red Blood Count 4.71 10^6/uL (4.5-5.90) Hemoglobin 13.8 g/dL (13.5-17.5) Hematocrit 42.1 % (41.0-53.0) Mean Corpuscular Volume 89.5 fL (80.0-100.0) Mean Corpuscular Hemoglobin 29.4 pg (28.0-32.0) Mean Corpuscular Hemoglobin Concent 32.8 g/dL (32.0-36.0) Red Cell Distribution Width 14.7 % (11.8-14.3) Platelet Count 351 10^3/uL (140-450) Mean Platelet Volume 7.1 fL (6.9-10.8) Neutrophils (%) (Auto) 73.8 % (37.0-80.0) Lymphocytes (%) (Auto) 15.5 % (10.0-50.0) Monocytes (%) (Auto) 7.3 % (0.0-12.0) Eosinophils (%) (Auto) 2.9 % (0.0-7.0) Basophils (%) (Auto) 0.5 % (0.0-2.0) Neutrophils # (Auto) 6.0 10 ^3/uL (1.6-8.6) Lymphocytes # (Auto) 1.3 10 ^3/uL (0.4-5.4) Monocytes # (Auto) 0.6 10 ^3/uL (0-1.3) Eosinophils # (Auto) 0.2 10 ^3/uL (0-0.8) Basophils # (Auto) 0 10 ^3/uL (0-0.2) Nucleated Red Blood Cells 0.1 % Sodium Level 138 mmol/L (136-145) Potassium Level 3.8 mmol/L (3.5-5.1) Chloride Level 106 mmol/L (98-107) Carbon Dioxide Level 25 mmol/L (20-31) Anion Gap 7 (5-15) Blood Urea Nitrogen 15 mg/dL (9-23) Creatinine 0.69 mg/dL (0.700-1.30) Glomerular Filtration Rate Calc 125 mL/min (>90) BUN/Creatinine Ratio 21.7 (10.0-20.0) Serum Glucose 88 mg/dL (74-106) Calcium Level 9.7 mg/dL (8.7-10.4) Urine Opiates Screen Neg (NEGATIVE) Urine Fentanyl Screen Neg (NEGATIVE) Urine Barbiturates Screen Neg (NEGATIVE) Urine Phencyclidine Screen Neg (NEGATIVE) Urine Amphetamines Screen Neg (NEGATIVE) Urine Benzodiazepines Screen Neg (NEGATIVE) Urine Cocaine Screen Neg (NEGATIVE) Urine Cannabinoids Screen Neg (NEGATIVE) Test 11/01/24 15:10 11/01/24 09:21 11/01/24 04:49 11/01/24 00:00 Erythrocyte Sedimentation Rate 16 mm/hr (0-20) HIV (1&2) Antibody Negative (Negative) Influenza Type A Antigen Negative (Negative) Influenza Type B Antigen Negative (Negative) Total Bilirubin 0.4 mg/dL (0.2-1.0) Aspartate Amino Transferase (AST) 21 U/L (13-40) Alanine Aminotransferase (ALT) 12 U/L (7-40) Alkaline Phosphatase 86 U/L (46-116) B-Type Natriuretic Peptide 13.70 pg/mL (0-100) Total Protein 6.8 g/dL (5.7-8.2) Albumin 3.8 g/dL (3.2-4.8) SARS-CoV-2 Antigen (Rapid) Negative (NEGATIVE) Test 10/31/24 10:28 10/31/24 05:40 10/31/24 00:48 Troponin I High Sensitivity < 3 ng/L (</=54) Urine Color Light-yellow (Yellow) Urine Clarity Clear (Clear) Urine pH 5.5 (5.0-9.0) Urine Specific [place] 1.017 (1.001-1.035) Urine Protein Negative (Negative) Urine Ketones Negative (Negative) Urine Blood Negative /uL (Negative) Urine Nitrite Negative (Negative) Urine Bilirubin Negative (Negative) Urine Urobilinogen Normal mg/dL (Negative) Urine Leukocyte Esterase Negative /uL (Negative) Urine RBC 1 /hpf (0 - 3) Urine WBC <1 /hpf (0 - 3) Urine Squamous Epithelial Cells None seen /hpf (<5) Urine Bacteria None seen /hpf (None Seen) Urine Mucus Few (None Seen) Urine Glucose Normal mg/dL (Normal) Lactic Acid Level 1.9 mmol/L (0.4-2.0) Other Laboratory Tests 11/02/24 06:54 Brief Hx & Hospital Course: HPI: 34 year old male with past medical history of polysubstance abue(marijuana and crystal meth) currently on rehabilitation who presented to [facility] ED with complaint of shortness of breath and epigastric pain while coughing. 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 Hospital course: Patient reports he has been experiencing shortness of breath and dry cough since January, diagnosed with pneumonia in January and September , cough is described as dry and is associated with mild epigastric/chest discomfort, other than that patient reports that he has been hospitalized in [place] and discharged 3 weeks ago they told the patient he has a fungal infection in the lungs,during hospitalization he reports improvement in his epigastric/chest pain, but the cough remains the same otherwise the patient is stable. Patient was started on IV antibiotic regimen azithromycin and ceftriaxone. CT chest showed numerous nodular consolidations throughout both lungs in a perilymphatic distribution with more confluent opacification of bilateral upper lobes. Findings are favored to reflect an infectious/inflammatory etiology. Prominent mediastinal nodes, nonspecific but favored reactive.Mild intralobular septal thickening, nonspecific. No evidence of fibrosis or honeycombing.Medical records were obtained from [facility] ,were they ruled out TB,neoplasms, biopsy result was unremarkable. for which the most likely cause of these findings in the CT chest was the pas history of cocaine abuse and methamphetamines abuse, the patient was cunseled regarding this and was discharged safely with the recommendations to follow up with a PCP and a carbon setter within 2 weeks. Disposition: Patient stable for discharge Case discussed with Goals of care discussed with the patient for 29 minutes. Operations or Procedures [address] [address] Ph: [phone] DIAGNOSTIC IMAGING Diagnostic Imaging Report : [id number] Signed PATIENT: ALEK VARGHESECCT: [id number] UNIT: [id number] : 1990 LOC: ER ROOM / BED: / AGE / SEX: 34 / M ADM STATUS: REG ER SERVICE 2334 ORDERING PHYSICIAN: NATHAN MADSEN PROCEDURE(s): CXR1 - CHEST XRAY 1 VIEW REASON: sob ORDER NUMBER(s): [id number], ACCESSION NUMBER(s): [id number] CHEST RADIOGRAPH Indication: sob Technique: Single frontal view of the chest was obtained Comparison: None Findings/ IMPRESSION: Bilateral diffuse patchy opacities concerning for multifocal pneumonia with other etiologies not excluded. ATED BY: MICKY BOB DO DICTATED DATE/TIME: 10/30/242358 SIGNED BY: MICKY BOB DO SIGNED DATE/TIME: 10/30/242358 CC: [place] [address] Ph: [phone] DIAGNOSTIC IMAGING Diagnostic Imaging Report : [id number] Signed PATIENT: ALEK VARGHESECCT: [id number] UNIT: [id number] : 1990 LOC: [facility] ROOM / BED: [facility] / B AGE / SEX: 34 / M ADM STATUS: ADM IN SERVICE 1120 ORDERING PHYSICIAN: DOTTIE BRAND PROCEDURE(s): CXRHIRES - HI-RESOLUTION CHEST CT REASON: rule out ILD ORDER NUMBER(s): [id number], ACCESSION NUMBER(s): [id number] EXAM: CT HI-RESOLUTION CHEST CT History: rule out ILD Comparison Study: None available TECHNIQUE: Multidetector CT of the chest was performed. Imaging was performed without IV contrast. Axial, coronal, and sagittal multiplanar reformats were obtained from the axial data set by the technologist. Radiation Dose : CTDI vol 9.15 mGy, DLP 518.4 mGy*cm. Findings: Lungs: Numerous nodular condolidations throughout both lungs in a perilymphatic distribution with more confluent opacification of bilateral upper lobes. Mild intralobular septal thickening. No evidence of fibrosis or honeycombing. No significant difference between inhalation and exhalation. Pleura: Unremarkable Heart/Great vessels: The visualized heart is unremarkable. No cardiomegaly or pericardial effusion. Mediastinum: Prominent mediastinal nodes. Soft tissues/Bones: Unremarkable The partially visualized upper abdomen is within normal limits. Impression: 1. Numerous nodular condolidations throughout both lungs in a perilymphatic distribution with more confluent opacification of bilateral upper lobes. Findings are favored to reflect an infectious/inflammatory etiology. Consider tissue sampling for further evaluation as indicated. 2. Prominent mediastinal nodes, nonspecific but favored reactive. 3. Mild intralobular septal thickening, nonspecific. 4. No evidence of fibrosis or honeycombing. ATED BY: OLIVA BRADLEY DO DICTATED DATE/TIME: 11/01/241314 SIGNED BY: OLIVA BRADLEY DO SIGNED DATE/TIME: 11/01/241314 CC: Condition at Discharge: Fair Final Diagnosis/Problems List Multifocal pneumonia TB rule out Multiple nodules in lung likely due to Drug abuse (methampetamines) Methamphetamine abuse. #Asymptomatic bradycardia Discharge Disposition: Home SNF Discharge Will this Physician continue t: No Discharge Instruct/Medications Diet: Cardiac 2g Na,low cholest Activity: No Restrictions, As Tolerated Follow Up/Referral: follow up with pulmonology within 2 weeks follow up with PCP within 2 weeks Medications: script to pharmacy Discharge Statement: "Patient was advised to return to the ER or call 911 if any headaches, dizziness, shortness of breath, chest pain, abdominal pain, bleeding, fevers, or worsening of medical condition. Patient was counseled about treatment plan, medications, possible side effects, patientverbalized understanding. All questions were answered to the best of my ability. This discharge took greater then 30 minutes in planning, reviewing documentation, counseling the patient, and discussing with other team members." ASSESSMENT ASSESSMENT Assessment Multifocal pneumonia TB rule out Multiple nodules in lung likely due to Drug abuse (methampetamines) Date of Service: Nov 03, 2024 Billing Provider: THALIA ART MD Common Visit Codes: 33109-TUS/OBS DISCH DAY >30min DOTTIE BRAND RESIDENT Nov 03, 2024 22:23 THALIA ART MD Nov 07, 2024 21:09
[2024-11-04 22:06] LABS: Coccidioides CF Antibody <1:2 (<1:2)
[2024-11-05 04:06] LABS: QuantiFERON-TB Gold Plus Negative (Negative)
--- NOTE | 2024-11-07 13:57 | ECG ---
[facility] Test Date: 2024-10-31 Test Time: 09:52:56 Pat Name: ALEJANDRO LUIS Department: ER Room: 0239 A Gender: M Network Support Engineer: GIANFRANCO : 1990 Requested By: NATHAN MADSEN Order Number: [id number] Reading MD: Guero Angulo Measurements Intervals [place] Rate: 102 P: 49 CO: 123 QRS: 140 QRSD: 95 T: 8 QT: 345 QTc: 450 Interpretive Statements Sinus tachycardia Right ventricular hypertrophy Lateral infarct, acute Electronically Signed On 11-07-2024 17:51:25 PST by Guero Angulo Please click the below link to view image of tracing.
== END 2024-11-03 17:30 | disposition home or self-care (01) | DRG 720 ==
LOC: ER 23:25 → TELE 10-31 09:18 → TELE-WESTW 10-31 21:35 → WEST WING 11-01 23:31 → EAST 11-02 18:23
PROVIDERS: ADMIT Student in an Organized Health Care Education/Training Program; ATTEND Student in an Organized Health Care Education/Training Program
DX: A41.9 Sepsis, unspecified organism (principal); J96.21 Acute and chronic respiratory failure with hypoxia; J15.69 Pneumonia due to other Gram-negative bacteria; F15.10 Other stimulant abuse, uncomplicated; Z20.822 Contact with and (suspected) exposure to COVID-19; A15.9 Respiratory tuberculosis unspecified; J15.9 Unspecified bacterial pneumonia; Z99.81 Dependence on supplemental oxygen
CPT/HCPCS: 36415; 71045; 71250; 80048; 80053; 80307; 81001; 83605; 83880; 84484; 85025; 85652; 86038; 86635; 86703; 87040; 87426; 87804; 93005; 93306; 94640; G0378